=== PATIENT | female | born 1985 | race Caucasian/White ===

== ENCOUNTER → 2016-09-27 17:45 | Observation (INO) ==
[2016-09-27 17:02] LABS: Basophils % 0.2 %; Eosinophils % 0.4 %; Hematocrit 32.7 % (35.3-44.9); Hemoglobin 10.6 g/dL (11.5-15.4); Immature Granulocytes % 0.7 % (0-4); Lymphocytes # 2.4 K/mcL (0.6-4.6); Lymphocytes % 26.7 %; Mean Corpuscular HGB Conc 32.4 g/dL (31.6-35.5); Mean Corpuscular Hemoglobin 26.6 pg (28.0-33.3); Mean Corpuscular Volume 82.2 fL (83.0-100.0); Mean Platelet Volume 9.5 fL (9.4-12.4); Monocytes # 0.7 K/mcL (0.0-1.3); Monocytes % 7.5 %; Neutrophils # 5.8 K/mcL (1.6-8.9); Platelet Count 299 K/mcL (140-400); Red Blood Count 3.98 M/mcL (3.82-4.97); Red Cell Distribution Width 15.1 % (11.5-14.5); Segmented Neutrophils % 64.5 %
[2016-09-27 17:14] LABS: Protein/Creatinine Ratio,Urine 0.19 mg/mg (0-0.20)
[2016-09-27 17:18] LABS: Alanine Aminotransferase 16 Units/L (0-55); Aspartate Amino Transferase 22 Units/L (5-34); BUN/Creatinine Ratio 11 (6-26); Blood Urea Nitrogen 7 mg/dL (7-20); Lactate Dehydrogenase 141 Units/L (159-327); Uric Acid 4.7 mg/dL (2.6-6.0); eGFR For African Americans > 60 (> 60); eGFR For Non-African Americans > 60 (> 60)
--- NOTE | 2016-09-27 17:33 | OB/GYN Progress Note ---
Date of Encounter: 09/27/16 Time of Encounter: 17:33 - Assessment and Plan (1) 37 weeks gestation of Status: Acute Pt receives appropriate care with Dr. Head (2) Non-stress test reactive Status: Acute Baseline 145 bpm/ moderate/ +accels/-decels Heart tracing reassuring (3) induced hypertension Status: Acute 30yo F admitted from outpatient due to BP of 164/104 PIHL labs WNL, protein creatinine ratio WNL at 0.19 No symptom - Denies BARTLETT/ Epigastric pain, visual disturbances On physical exam, no LE, no neuro focal deficits BP's 16:30 on admission: 137/87, 138/90, 117/79, 126/87 . Discussed with SHERIN Brown. Per Kevin, pt safe for discharge home, with labor precautions, when to return to triage or call provider. Pt verbalizes understanding Qualifiers: Trimester: third trimester Qualified Code(s): O13.3 - Gestational [ -induced] hypertension without significant proteinuria, third trimester Subjective - Subjective Principal diagnosis: Gestational Hypertension Interval history: 30 yo F at 37w1d presents to labor and delivery from office for PIH evaluation. Patient had elevated BP of 164/104 in office. Reports good movement, Patient denies leaking of fluid or vaginal bleeding. Denies headache, visual disturbances or epigastric pain, or LE edema.. Patient follows with Dr. Head. Antepartum ROS: movement normal, no loss of fluid, no vaginal bleeding, no contractions Objective - Vital Signs Vital Signs: T: 36.7 HR: 110 RR: 16 16:00 (outpatient): 164/110 16:30 on admission: 137/87 16:54 138/90 17:11 117/79 17:25 126/87 Intake and Output 09/27/16 09/27/16 09/27/16 07:59 15:59 23:59 Other: Weight 104.7 kg Patient Weight 09/27/16 23:59 Weight 104.7 kg - Exam FHR: category 1 FHR comments: Baseline 145 Auscultation: bilateral: normal Abdomen: Present: normal appearance, soft, gravid. Absent: tenderness Uterus: Present: normal. Absent: tenderness - Labs Labs: Abnormal lab results Hgb 10.6 g/dL (11.5-15.4) L 09/27/16 16:45 Hct 32.7 % (35.3-44.9) L 09/27/16 16:45 MCV 82.2 fL (83.0-100.0) L 09/27/16 16:45 MCH 26.6 pg (28.0-33.3) L 09/27/16 16:45 RDW 15.1 % (11.5-14.5) H 09/27/16 16:45 Lactate Dehydrogenase 141 Units/L (159-327) L 09/27/16 16:45
== END | disposition home or self-care (01) ==
LOC: 1NENULAB
PROVIDERS: ADMIT Student in an Organized Health Care Education/Training Program; ATTEND Student in an Organized Health Care Education/Training Program

== ENCOUNTER → 2016-10-08 10:49 | Observation (INO) ==
--- NOTE | 2016-10-08 10:43 | Discharge Summary ---
Date of Encounter: 10/08/16 Time of Encounter: 10:42 - Discharge Diagnosis (1) 38 weeks gestation of Priority: Primary Status: Acute Comments: admitted for observation for rule out rupture of membranes Nitrazine negative (2) NST (non-stress test) reactive on surveillance Priority: Secondary Status: Acute Comments: FHR 155 bpm moderate variability +15x15 accels no decels noted. - Discharge Medications Home Medications: Vit/FA 1 tab PO DAILY 01/27/15 [History] Levothyroxine 50 mg PO DAILY 10/08/16 [History] Promethazine [Phenergan] 12.5 mg PO Q8HR PRN 10/08/16 [History] Allergies/Adverse Reactions: Allergies No Known Allergies Allergy (Verified 12/30/14 10:33) Date of admission: 10/08/16 09:26 Primary care physician: COLE Presley Discharging clinician: Luisana Barrios Anticipated date of discharge: 10/08/16 - Patient Status Disposition: Home, Self-Care Condition: Good Functional capacity at discharge: independent ambulation - Discharge Instructions Follow Up With: Lexy Gonzalez CNP [Primary Care Provider] - Tyrone Head MD [Partnered Physician] - - Diet and Activity Activity: increase activity as tolerated Diet: regular diet Hospital Course SALES MANAGER Hospital course: Patient is 30 y/o at 38 weeks gestation presented to labor and delivery with complaints of leaking fluid yesterday during a bowel movement. Patient denies any leaking since. Patient denies contraction or VB. Patient reports + FM. Time Attestation: Total time spent providing and/or coordinating discharge services: Time Spent: Less than 30 minutes Exam - Constitutional General appearance IM: A&O X 3, pleasant, answers questions appropriately - Other Additional findings: FHR 155 bpm moderate variability +15x15 accels no decels noted. Cat 1 tracing. Nitrazine negative. Perineum dry. - VTE Reasons for not Prescribing Prophylaxis: Treatment not Indicated - Low risk for VTE
== END | disposition home or self-care (01) ==
LOC: 1NENULAB
PROVIDERS: ADMIT Obstetrics & Gynecology; ATTEND Obstetrics & Gynecology

== ENCOUNTER 2016-10-15 08:00 | Inpatient (IN) ==
[2016-10-15] MEDS ORDERED: Famotidine 20 MG/2 ML VIAL IVP PRN (15:28)
[2016-10-15] MEDS ORDERED: Metoclopramide 10 MG/2 ML VIAL IVP PRN (15:28)
[2016-10-15] MEDS ORDERED: Naloxone 0.4 MG/ML INJ IVP PRN (15:28)
[2016-10-15] MEDS ORDERED: Ondansetron 4 MG/2 ML VIAL IVP PRN (15:28)
[2016-10-15] MEDS ORDERED: miSOPROStol 25 MCG TABLET PO PRN (15:28)
[2016-10-15] MEDS ORDERED: Ringers Solution, Lactated 1,000 ML IVC SCH (15:30)
--- NOTE | 2016-10-15 15:33 | OB/GYN History & Physical ---
Date of Encounter: 10/15/16 Time of Encounter: 15:30 Assessment and Plan (1) 39 weeks gestation of Current visit: Yes Status: Acute Admit for IOL. Plan for cytotec for induction. Epidural if desired. Anticipate vaginal delivery assisted by induction. History of Present Illness Chief complaint: IOL HPI: Ms. Mobley is a 30 year old female, , at 39.5 GA, presenting to labor and delivery for elective induction of labor. Pt pre-natals with Dr. Head, no gestational risk factors are currently present. Labs: Negative: GBS, HIV, Hep B, Syphilis, N.Aubrey, C.Trac, Immune: Rubella, VZV Bld Type: O+ Past Med Surg Social Fam HX - Past Medical History Medical history: thyroid disease Psychiatric history: no psych history - Past Surgical History Surgical History: other - Social History Smoking Status: Never smoker Smokeless Tobacco Status: No Alcohol use: none Drug use: none - Family History Mother Living Status: Still Living Hx Family Cardiac Disorders: No Hx Family Respiratory Disorders: No Hx Family Cancer: No Hx Family GI Disorders: No Hx Family Endocrine Disorder: Yes (HYPOTHYROID) Hx Family Neuromuscular Disorders: No Hx Family Neurologic Disorders: No Hx Family HEENT Disorders: No Hx Family Autoimmune Disorders: No Obstetrical History - Pregnancies : 2 Para: 1 Term: 1 : 0 Ab's: 0 Livin Medications and Allergies Vit/FA 1 tab PO DAILY 01/27/15 [History] Promethazine [Phenergan] 12.5 mg PO Q8HR PRN 10/08/16 [History] Allergies No Known Allergies Allergy (Verified 12/30/14 10:33) Review of System OB - Constitutional Constitutional ROS IM: no headache(s) - Cardiovascular Cardiovascular: no chest pain - Respiratory Respiratory: no dyspnea - Gastrointestinal Gastrointestinal: no abdominal pain - Neurological Nerological: no numbness Exam - Constitutional Constitutional: well developed, well nourished, no acute distress - HEENT HEENT: Normocephaly, Mucus Membranes Moist - Neck Neck exam: full ROM - Lungs Respiratory exam: CTAB - Cardiovascular Cardiovascular exam: +S1, +S2 - Abdomen Abdomen: Present: bowel sounds normal - Vagina Vagina: Present: normal moisture - Uterus Uterus exam: Present: enlarged Results Result Diagrams: 10/15/16 15:40 All other labs normal.
[2016-10-15 15:57] LABS: Basophils % 0.2 %; Eosinophils % 0.2 %; Hematocrit 33.6 % (35.3-44.9); Immature Granulocytes % 0.4 % (0-4); Lymphocytes # 1.8 K/mcL (0.6-4.6); Mean Corpuscular HGB Conc 32.7 g/dL (31.6-35.5); Mean Corpuscular Hemoglobin 27.1 pg (28.0-33.3); Mean Corpuscular Volume 82.8 fL (83.0-100.0); Mean Platelet Volume 10.1 fL (9.4-12.4); Monocytes # 0.5 K/mcL (0.0-1.3); Monocytes % 4.8 %; Neutrophils # 7.7 K/mcL (1.6-8.9); Platelet Count 300 K/mcL (140-400); Red Blood Count 4.06 M/mcL (3.82-4.97); Red Cell Distribution Width 15.6 % (11.5-14.5); Segmented Neutrophils % 76.4 %
[2016-10-15] MEDS ORDERED: *HR* FentaNYL (PF) 100 MCG/2 ML VIAL EP ONE (20:22)
[2016-10-15] MEDS ORDERED: Bupivacaine-MPF 0.25% 10 ML VIAL EP ONE (20:22)
[2016-10-15] MEDS ORDERED: *HR* FentaNYL (PF) 100 MCG/2 ML VIAL ONE (20:27)
[2016-10-15] MEDS ORDERED: Bupivacaine-MPF 0.25% 10 ML VIAL ONE (20:28)
[2016-10-15] MEDS ORDERED: Epidural Premix (fent/bupiv) 110 ML EP SCH (20:30)
[2016-10-15] MEDS ORDERED: Epidural Premix (fent/bupiv) 110 ML EP ONE (20:30)
--- NOTE | 2016-10-15 21:29 | Anesthesia Evaluation PreOp ---
Date of Encounter: 10/15/16 Time of Encounter: 18:15 - Past History Planned Operation: epidural Cardiac History: Denies any Significant Hx Pulmonary History: Denies Any Significant HX HOURLY SIGN LANGUAGE INTERPRETER History: Denies Any Significant HX Other Medical History: Thyroid Anesthesia History: No Prior Anesthetic Complications (vag delivery x 1) : Yes Test: Positive Alcohol Use: none Drug use: none Medications and Allergies Vit/FA 1 tab PO DAILY 01/27/15 [History] Promethazine [Phenergan] 12.5 mg PO Q8HR PRN 10/08/16 [History] Allergies No Known Allergies Allergy (Verified 12/30/14 10:33) - Meds/Allergy Pre-op Review Medications Reviewed: Yes Allergies Reviewed: Yes Beta Blockers on Current Med List: No Anesthesia Results - Labs 10/15/16 15:40 Anesthesia Exam 3 Vital Signs Time 1815 BP 118/82 Pulse 93 Resp 16 O2 Sat Height: 63 Weight: 105 kg NPO (# of Hours): 1230 pm solids Pain Scale: 5 Pain Scale Used: Numeric (1 - 10) - HEENT Pupil (Motor): Pupils equal Mallampati: II Teeth: Normal Oral Opening: Greater than 3 - HOURLY SIGN LANGUAGE INTERPRETER LOC: Oriented HOURLY SIGN LANGUAGE INTERPRETER Motor: Normal RUE, Normal LUE, Normal RLE, Normal LLE, Normal Face HOURLY SIGN LANGUAGE INTERPRETER Sensory: Normal: RUE, LUE, RLE, LLE, Face - Cardiac Rhythm: Regular Murmur: None JVD: No Carotid Bruit: No - Pulmonary Breath Sounds: bilateral Clear Respiratory Effort: Symmetrical Anesthesia Assess/Plan ASA Score: 2 Modified Luis Scale for Level of Consciousness: Cooperative, oriented, and tranquil Anesthetic Plan: Regional Monitoring Plan: Standard Monitors Recovery Plan: Other
--- NOTE | 2016-10-15 21:36 | Anesthesia Procedures ---
Date of Encounter: 10/15/16 Time of Encounter: 20:46 Procedures: Anesthesia - Epidural/Spinal Patient ID/Chart reviewed: Yes Patient examined: Yes OB Eval: Gestational age: 39 weeks 5 days OB Eval: : 2 OB Eval: Hx Para: 1 OB Eval: Dilated at (cm): 3 OB Eval: Contractions: Non-stressed pattern Consent Obtained: Yes Supplemental Oxygen: None/Room Air Site Prep: Aseptic Technique, Sterile prep and drape, Povidone-Iodine 1% Patient position: upright Local Anesthetic: Lidocaine 1% Amount of Local Anesthetic used: 3 Touhy Needle Gauge: 18 Touhy Needle Depth (cm): 5 Catheter Depth at Skin (cm): 12 Test Dose (1.5% Lido + Epi): Volume given (mls): 3 Test Dose Result: Negative Loading Dose: 0.25% Marcaine (mls): 5 Loading Dose: Fentanyl (mcg): 100 Loading Dose: Other: 3 ml saline Loading Dose Administered: Thru Catheter Infusion Med: 0.125% Bupivacaine w/ 2 mcg/ml Fentanyl Infusion Rate (mls/hr): [address]: Tegaderm, Tape Interspace Used: L3-L4 Loss of Resistance (INGA): Yes (air) Blood: No CSF: No Paresthesia: No Procedure: 3 Vital Signs Time 2045 start 2053 test 2100 bolus 2110 pump started BP 139/88 123/81 127/74 128/76 Pulse 106 96 100 110 Resp 16 16 16 16 O2 Sat 99 99 99 99 heart tones 140-150
--- NOTE | 2016-10-15 22:38 | OB Labor Progress Note ---
Date of Encounter: 10/15/16 Time of Encounter: 22:00 Labor Progress Note - Subjective Subjective: Pt comfortable with epidural - Cervix Cervix: - Heart Tones Heart Tones: Category I - Interventions Interventions: AROM for large amount clear fluid - Plan Plan: Continue to monitor. Anticipate .
[2016-10-16] MEDS ORDERED: Oxytocin 20 units/ LR 1000 mL 20 UNIT/1,000 ML BAG IVC SCH ×2 (03:45→04:21)
--- NOTE | 2016-10-16 04:14 | OB/GYN Procedure Note ---
Delivery - Delivery Date: 10/16/16 Provider: Tyrone Head Intrapartum events: none Delivery induction: misoprostol Delivery monitor: external FHT, external uterine Anesthesia: epidural Estimated Blood Loss: 100 - (s) Infant A Infant Delivery Date: 10/16/16 Infant Delivery Time: 03:52 Presentation: vertex Position: GALI Route of delivery: Gender: Male Viability: Viable Pounds: 7 Ounces: 15 at 1 minute: 8 at 5 mins: 9 Placenta: spontaneous Cord: true knot, 3 umbilical vessels - Repair Episiotomy: none Laceration Description: Perineal - 1st Degree - Complications Delivery complications: none - Disposition Mom disposition: stable in LDR Parrott disposition: stable in LDR - Comments Comments: Pt s/p of liveborn male without difficulty. Spontaneous delivery of normal placenta without difficulty. 1st degree laceration repaired with 3-o Vicryl. Pt tolerated well.
[2016-10-16] MEDS ORDERED: Acetaminophen 325 MG TABLET PO PRN (04:21)
[2016-10-16] MEDS ORDERED: Measles/Mumps/Rubella Vacc 0.5 ML VIAL SQ PRN (04:21)
[2016-10-16] MEDS ORDERED: Rho Immune Globulin 1,500 UNIT SYRINGE IM PRN (04:21)
[2016-10-16] MEDS ORDERED: Prenatal Vit/FA 1 EACH TABLET PO SCH (09:00)
[2016-10-16] MEDS: Ibuprofen 600 MG TABLET PO PRN ×2 (15:46→21:19)
[2016-10-17] MEDS: Ibuprofen 600 MG TABLET PO PRN (03:09)
[2016-10-17 06:09] LABS: Basophils % 0.3 %; Eosinophils # 0.1 K/mcL (0.0-0.6); Eosinophils % 0.7 %; Hematocrit 32.4 % (35.3-44.9); Hemoglobin 10.5 g/dL (11.5-15.4); Immature Granulocytes % 0.4 % (0-4); Lymphocytes # 2.8 K/mcL (0.6-4.6); Lymphocytes % 29.1 %; Mean Corpuscular HGB Conc 32.4 g/dL (31.6-35.5); Mean Corpuscular Hemoglobin 27.4 pg (28.0-33.3); Mean Corpuscular Volume 84.6 fL (83.0-100.0); Mean Platelet Volume 9.9 fL (9.4-12.4); Monocytes # 0.5 K/mcL (0.0-1.3); Monocytes % 5.5 %; Neutrophils # 6.2 K/mcL (1.6-8.9); Platelet Count 261 K/mcL (140-400); Red Blood Count 3.83 M/mcL (3.82-4.97)
[2016-10-17 08:08] VITALS: BP 113/79
--- NOTE | 2016-10-17 08:19 | Discharge Summary ---
Date of Encounter: 10/17/16 Time of Encounter: 08:17 - Discharge Diagnosis (1) Status post vaginal delivery Priority: Primary Status: Acute Comments: Continue routine care discharge home today follow up with Dr. Head in 4-6 weeks - Discharge Medications Home Medications: Vit/FA 1 tab PO DAILY 01/27/15 [History] Ibuprofen [Motrin] 600 mg PO Q6HR PRN tab 10/17/16 [Rx] Vit/FA 1 each PO DAILY tab 10/17/16 [Rx] Allergies/Adverse Reactions: Allergies No Known Allergies Allergy (Verified 12/30/14 10:33) Data Procedures and tests throughout hospitalization: Laboratory Tests 10/15/16 10/17/16 15:40 05:57 WBC 10.1 9.7 RBC 4.06 3.83 Hgb 11.0 L 10.5 L Hct 33.6 L 32.4 L MCV 82.8 L 84.6 MCH 27.1 L 27.4 L MCHC 32.7 32.4 RDW 15.6 H 16.0 H Plt Count 300 261 MPV 10.1 9.9 Immature Gran % 0.4 0.4 Seg Neutrophils % 76.4 64.0 Lymphocytes % 18.0 29.1 Monocytes % 4.8 5.5 Eosinophils % 0.2 0.7 Basophils % 0.2 0.3 Neutrophils # 7.7 6.2 Lymphocytes # 1.8 2.8 Monocytes # 0.5 0.5 Eosinophils # 0.0 0.1 Basophils # 0.0 0.0 Labs on day of discharge: Labs from last 24 hours 10/17/16 05:57 WBC 9.7 RBC 3.83 Hgb 10.5 L Hct 32.4 L MCV 84.6 MCH 27.4 L MCHC 32.4 RDW 16.0 H Plt Count 261 MPV 9.9 Immature Gran % 0.4 Seg Neutrophils % 64.0 Lymphocytes % 29.1 Monocytes % 5.5 Eosinophils % 0.7 Basophils % 0.3 Neutrophils # 6.2 Lymphocytes # 2.8 Monocytes # 0.5 Eosinophils # 0.1 Basophils # 0.0 Date of admission: 10/15/16 15:05 Primary care physician: PCP NONE Consults: 10/16/16 04:21 Consult to Cargo Mate [CONS] Routine Comment: Vaginal delivery, consult needed Discharging clinician: Luisana Barrios Anticipated date of discharge: 10/17/16 - Patient Status Disposition: Home, Self-Care Condition: Good Functional capacity at discharge: independent ambulation - Discharge Instructions Follow Up With: NONE,PCP [Primary Care Provider] - Tyrone Head MD [Partnered Physician] - - Diet and Activity Activity: increase activity as tolerated Diet: regular diet Hospital Course Reason for admission: induction of labor Delivery: Episiotomy: none Laceration: 1st degree Other procedures: none complications: none Discharge diagnosis: IUP at term delivered [place] baby: male (breast feeding) Time Attestation: Total time spent providing and/or coordinating discharge services: Time Spent: Less than 30 minutes Exam - Constitutional Vitals: Temp Pulse Resp BP Pulse Ox 97.7 F 78 15 113/79 97 10/17/16 08:06 10/17/16 08:06 10/17/16 08:06 10/17/16 08:06 10/17/16 08:06 General appearance IM: A&O X 3, pleasant, answers questions appropriately - Respiratory Respiratory exam: Present: CTAB - Cardiovascular Cardiovascular exam IM: Present: RRR, +S1, +S2 - GI/Abdominal GI/Abdominal exam IM: normal bowel sounds - Uterine Tone: Firm Uterus Position: 1 Finger Below Umbilicus, Midline - Extremities Exam Extremities exam IM: Present: full ROM, normal capillary refill, normal inspection - Neurological Exam Neurological exam: alert, oriented X3, reflexes normal
== END 2016-10-17 11:35 | disposition home or self-care (01) | DRG 775 ==
LOC: 1NENULAB 15:05 → 1NENUOBS 10-16 06:30
PROVIDERS: ADMIT Obstetrics & Gynecology; ATTEND Obstetrics & Gynecology